=== PATIENT | female | born 1985 | race Caucasian/White ===

== ENCOUNTER → 2017-03-30 | Outpatient (CLI) | payer OTHER ==
[~2017-03-30] MED LIST: AC325T PO; ACET-2267 PO; ACHD5005 PO; DCS100C PO; DIPH50CA33 PO; DOCU-143 PO; EPIN0.3P2 IM; FOLI1TAB24 PO; FRS325T PO; IBP600T1 PO; IBUP-1773 PO; LORA10CA PO; MULT-974 PO; PRD50T PO; YASMIN PO
--- NOTE | 2017-03-30 17:22 | Diagnostic Imaging Report ---
PROCEDURE: US thyroid. TECHNIQUE: Multiple real-time grayscale images were obtained of the thyroid in various projections. INDICATION: Thyromegaly FINDINGS: The right lobe of the thyroid measures 4.2 x 1.4 x 1.5 cm. Left lobe measures 4.7 x 1.4 x 1.5 cm. There is a 3 mm colloid nodule in the right lobe of the thyroid that is largely degenerated. No other masses or nodules are seen in the thyroid. IMPRESSION: 3 mm colloid nodule in right lobe of the thyroid. Thyroid is otherwise unremarkable. Dictated by: Dictated on workstation # [id number]
== END ==
LOC: RAD 15:29
PROVIDERS: ATTEND Nurse Practitioner Family
DX: E04.1 Nontoxic single thyroid nodule (principal)
CPT/HCPCS: 76536

== ENCOUNTER → 2018-10-12 | Outpatient (CLI) | payer OTHER ==
--- NOTE | 2018-10-12 16:56 | Diagnostic Imaging Report ---
INDICATION: Lost IUD strings, vaginal bleeding. EXAMINATION: Pelvic sonography performed with transabdominal views. FINDINGS: The uterus measures 8.4 x 4.1 x 3.2 cm. Endometrium measures 3 mm in thickness. No IUD fragment or foreign body is detectable in the uterus. The right ovary is 3.5 x 3.4 x 2.0 cm. The left measures 3.4 x 2.5 x 2.3 cm. There is no free fluid. IMPRESSION: Normal-appearing pelvic sonography. No sonographically evident foreign body is seen. Dictated by: Dictated on workstation # [id number]
== END ==
LOC: RAD 15:03
PROVIDERS: ATTEND Obstetrics & Gynecology
DX: T83.32XA Displacement of intrauterine contraceptive device, initial encounter (principal); N92.1 Excessive and frequent menstruation with irregular cycle
CPT/HCPCS: 76856

== ENCOUNTER → 2018-10-19 | Outpatient (CLI) | payer OTHER | LOC: RAD 09:05 | PROVIDERS: ATTEND Obstetrics & Gynecology | DX: Z30.431 Encounter for routine checking of intrauterine contraceptive device (principal); Z53.8 Procedure and treatment not carried out for other reasons ==

== ENCOUNTER → 2018-10-23 | Outpatient (CLI) | payer OTHER ==
--- NOTE | 2018-10-23 18:47 | Diagnostic Imaging Report ---
INDICATION: Evaluate IUD. TIME OF EXAM 4:34 PM FINDINGS: Single view of the abdomen and pelvis does show an IUD in the midline/left para midline location of the pelvis. Bowel gas pattern is unremarkable. No pathologic calcifications are seen. IMPRESSION: IUD is located within the pelvis. CT study could be performed to evaluate for an extrauterine location. Dictated by: Dictated on workstation # [id number]
== END ==
LOC: RAD 16:26
PROVIDERS: ATTEND Obstetrics & Gynecology
DX: Z30.431 Encounter for routine checking of intrauterine contraceptive device (principal)
CPT/HCPCS: 74018

== ENCOUNTER 2018-11-01 15:09 | Outpatient (CLI) | payer OTHER ==
[~2018-11-01] VITALS: Ht 160 cm; Wt 62.1 kg
[2018-11-01] MEDS ORDERED: bcp PO (15:11)
[2018-11-02] MEDS ORDERED: ACET-2267 PO (14:50)
[2018-11-02] MEDS ORDERED: OXYC-529 PO (14:50)
[2018-11-02] MEDS ORDERED: IBUP-1773 PO (14:50)
== END 2018-11-01 15:27 | disposition home or self-care (01) ==
LOC: PREOP 15:09
PROVIDERS: ATTEND Nurse Practitioner
DX: Z01.818 Encounter for other preprocedural examination (principal)

== ENCOUNTER 2018-11-02 11:01 | Day surgery (SDC) | payer OTHER ==
[~2018-11-02] VITALS: Ht 160 cm; Wt 62.1 kg
[~2018-11-02 11:01] MED LIST changes: +bcp PO
--- OUTSIDE RECORDS SUMMARY | 2018-11-02 11:05 | XMS REPORT | Clinical Summary ---
Author Author [facility] Organization [facility] Address Unknown Phone Unavailable Care Team Providers Care Land Acquisition Manager Name Role Phone PCP Unavailable Allergies Not on File Current Medications Not on file Active Problems Not on file Social History Tobacco Use Types Packs/Day Years Used Date Never Assessed Sex Assigned at Date Recorded Not on file Last Filed Vital Signs Not on file Plan of Treatment Not on file Results Not on filefrom Last 3 Months
--- OUTSIDE RECORDS SUMMARY | 2018-11-02 11:05 | XMS REPORT | Clinical Summary ---
Author Author [facility] Organization [facility] Address Unknown Phone Unavailable Care Team Providers Care Patient Financial Rep Name Role Phone Self, Referral PCP Unavailable Source Comments Some departments are not documenting in the electronic medical record. If you do not see the information that you expected, contact Release of Information in the Health Information Management department at [phone] for further assistance in locating additional records.[facility] Allergies Not on File Medications Not on file Active Problems Not on file Social History Date Tobacco Use Types Packs/Day Years Used Never Assessed Sex Assigned at Date Recorded Not on file Industry Job Start Date Occupation Not on file Not on file Not on file Travel End Travel History Travel Start No recent travel history available. Last Filed Vital Signs Not on file Plan of Treatment Health Maintenance Due Date Last Done Comments PHYSICAL (COMPREHENSIVE) 1993 EXAM HIV SCREENING 2001 DTAP/TDAP VACCINES ( - 02/11/2004 Tdap) CERVICAL CANCER SCREENING 02/11/2016 INFLUENZA VACCINE 03/07/2018 Results Not on filefrom Last 3 Months
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
[2018-11-02 11:45] VITALS: BP 124/91
[2018-11-02] MEDS ORDERED: ROCURONIUM 10 MG/ML 5 ML SYRINGE IV ONE (11:57)
[2018-11-02] MEDS ORDERED: ONDANSETRON 4 MG/2 ML (SDV) Z0FRAN ONE (11:57)
[2018-11-02] MEDS ORDERED: fentaNYL INJECTION 100 MCG/2 ML AMP ONE (11:57)
[2018-11-02] MEDS ORDERED: MIDAZOLAM 2 MG/2 ML (VERSED) VIAL ONE (11:57)
[2018-11-02] MEDS ORDERED: GLYCOPYRROLATE 0.2 MG/ML (ROBINUL) 2 ML VIAL ONE (11:57)
[2018-11-02] MEDS ORDERED: NEOSTIGMINE 1 MG/ML 5 ML SYRINGE ONE (11:57)
[2018-11-02] MEDS ORDERED: DEXAMETHASONE 10 MG/ML (DECADRON) 1 ML VIAL ONE (11:57)
[2018-11-02] MEDS ORDERED: SEVOFLURANE (ULTANE) 15 ML INHAL SOLN ONE ×2 (11:57→14:59)
[2018-11-02] MEDS ORDERED: LIDOCAINE PF 2% 5 ML (XYLOCAINE) VIAL ONE (11:57)
[2018-11-02] MEDS ORDERED: proPOfol 200 MG/20 ML (DIPRIVAN) VIAL IV ONE (11:57)
[2018-11-02] MEDS ORDERED: BUP/EPI 0.5% 1:200,000 (SENSORCAINE) 30 ML VIAL ONE (11:58)
[2018-11-02] MEDS ORDERED: BUPIVACAINE 0.25% 30 ML (SENSORCAINE) VIAL ONE (11:59)
[2018-11-02] MEDS: LACTATED RINGERS 1,000 ML IV PRN ×2 (12:00→15:18)
--- NOTE | 2018-11-02 12:15 | History & Physical-Surgical ---
HPO-Surgical History of Present Illness Chief Complaint: Presents to remove IUD. It is misplaced in the abdomen Seen on Xray Diagnosis/Surgical Indication: misplaced IUD Procedure: laparoscopy with removal IUD Date of Surgery: Nov 02, 2018 Weight (Pounds): 137 Weight (Ounces): 0.0 Height (Feet): 5 Height (Inches): 3.00 Allergies and Home Medications Allergies Coded Allergies: Cefaclor (Verified Allergy, Intermediate, HIVES/SOA, 06/28/11) Home Medications [bcp] , 1 TAB PO DAILY, (Reported) Patient Home Medication List Home Medication List Reviewed: Yes Past Iladsgz-Mhbfxg-Pbsier Hx Patient Social History Marrital Status: Number of Children: 2 Number of living children: 2 Employed/Student: employed Alcohol Use: Rarely Uses Recreational Drug Use: No Smoking Status: Never a Smoker 2nd Hand Smoke Exposure: No Recent Foreign Travel: No Contact w/other who traveled: No Recent Hopitalizations: No Recent Infectious Disease Expo: No Immunizations Up To Date Tetanus Booster (TDap): Less than 5yrs Pediatric: Yes Date of Influenza Vaccine: May 01, 2018 Seasonal Allergies Seasonal Allergies: Yes Surgeries Yes (Zarephath Teeth 2001) Respiratory No Cardiovascular No Neurological No Reproductive System Hx Reproductive Disorders: Yes (pcos) Sexually Transmitted Disease: No HIV/AIDS: No Female Reproductive Disorders: Polycystic Ovarian Dis Genitourinary No Gastrointestinal No Musculoskeletal No Endocrine History of Endocrine Disorders: No HEENT History of HEENT Disorders: No Cancer No Psychosocial History of Psychiatric Problem: No Integumentary History of Skin or Integumenta: No Blood Transfusions History of Blood Disorders: No Adverse Reaction to a Blood Tr: No Family Medical History Family Hx: Basal cell carcinoma 19 FATHER Exam Vital Signs Vital Signs 11/02/18 11:45 Temp 98.9 Pulse 82 Resp 16 B/P (MAP) 124/91 (102) Pulse Ox 99 O2 Delivery Room Air Capillary Refill : Labs Laboratory Tests Test 11/02/18 11:20 11/02/18 12:05 Range/Units Urine Test NEGATIVE NEGATIVE General Appearance: No Acute Distress Respiratory: Clear to Auscultation, Normal Air Movement Cardiovascular: Regular Rate, Normal S1 Abdominal: Normal Bowel Sounds Assessment/Plan Assessment and Plan Misplaced IUD Plan laparoscopy with removal of IUD. Risks of surgery include bleeding, infection, injury to bowel, bladder and ureter. Prophylactic antibiotics and SCDs. KIP DODSON DO Nov 02, 2018 12:15
[2018-11-02 12:27] LABS: BASOPHILS % (AUTO) 1 % (0-10); EOSINOPHILS % (AUTO) 1 % (0-10); HEMATOCRIT 37 % (35-52); HEMOGLOBIN 12.3 G/DL (11.5-16.0); LYMPHOCYTES # (AUTO) 1.6 X 10^3 (1.0-4.0); LYMPHOCYTES % (AUTO) 40 % (12-44); MEAN CORPUSCULAR HEMOGLOBIN 30 PG (25-34); MEAN CORPUSCULAR HGB CONC 34 G/DL (32-36); MEAN CORPUSCULAR VOLUME 88 FL (80-99); MEAN PLATELET VOLUME 12.1 FL (7.4-10.4); MONOCYTES # (AUTO) 0.3 X 10^3 (0.0-1.0); MONOCYTES % (AUTO) 8 % (0-12); NEUTROPHILS % (AUTO) 51 % (42-75); PLATELET COUNT 153 10^3/uL (130-400); RED CELL DISTRIBUTION WIDTH 13.5 % (10.0-14.5); WHITE BLOOD COUNT 3.9 10^3/uL (4.3-11.0)
[2018-11-02] MEDS ORDERED: KETOROLAC 30 MG/ML VIAL ONE ×2 (12:42→14:29)
[2018-11-02] MEDS ORDERED: ceFAZolin 1,000 MG/SWFI 10 ML IV PUSH IV ONE ×2 (13:15)
[2018-11-02] MEDS ORDERED: ACETAMINOPHEN 500 MG TAB (TYLENOL) PO SCH (14:45)
[2018-11-02] MEDS ORDERED: ONDANSETRON 4 MG/2 ML (SDV) Z0FRAN IVP PRN ×2 (14:45→15:00)
[2018-11-02] MEDS ORDERED: D5 LR IV SOLUTION 1,000 ML IV SCH (14:45)
[2018-11-02] MEDS ORDERED: KETOROLAC 30 MG/ML VIAL IVP ONE (14:45)
--- NOTE | 2018-11-02 14:45 | Operative Report ---
Operative Report Date of Procedure/Surgery Nov 02, 2018 Surgeon (s) KIP DODSON DO Landscape Management Technician (s): Hetal RodriguezDaniel, MS IV Post-Operative Diagnosis Same Procedure Performed Laparoscopy with removal of IUD/foreign body in the omentum Description of Procedure Anesthesia Type: General Estimated blood loss (mL): none Specimen(s) collected/removed IUD, not sent for pathology Description of the Procedure With informed consent the patient was taken to the operating room where general anesthesia was found to be adequate. The bladder was drained of clear yellow urine and the speculum was placed in the vagina and the cervix was grasped with a tenaculum. The manipulator was placed in the cervix. Attention was turned to the abdomen and the umbilicus was injected with 0.5% Marcaine and a 5 mm skin incision was made. The Veress needle was inserted and intraabdominal placement was confirmed with a saline drop test and a drop in pressure. The abdomen was insufflated with warmed CO2 gas to a maximum pressure of 15 mmHg. A 5 mm trocar was now inserted with the Optiview. A survey of the abdomen showed the IUD to be next to the uterus in the peritoneum and omentum. It appeared to be embedded. There was no evidence of uterine extrusion. I then placed two additional trocars lateral to the rectus muscles and avoiding the inferior epigastric vessels. These were both 5 mm trocars. I then inserted the Harmonic scalpel and and additional grasper. However, I did not need to use the harmonic. The IUD was just wrapped in the omentum and was removed easily. It was removed through one of the trocars. At this point the instruments were removed from the abdomen. The skin incisions were closed with surgical glue and bandages were placed. The instruments were removed from the vagina. The patient was awakened and taken to recovery in a stable condition. Addendum - the patient was given Ancef even though the antibiotic order had been cancelled due to not needing antibiotics with laparoscopy. The RN misunderstood. The patient had some redness on her chest and was thus given Benadryl, however, it was determined to be contact erythema rather than an allergic reaction. In addition, it had previously been determined that she did not have a cephalosporin allergy. Findings of the Procedure Normal pelvis IUD imbedded in the omentum,. Allergies and Home Medications Allergies Coded Allergies: cefaclor (Verified Allergy, Intermediate, HIVES/SOA (TOLERATES ANCEF), ) Home Medications Acetaminophen 500 Mg Tablet, 1,000 MG PO TID Prescribed by: KIP DODSON on 11/02/18 1450 Ibuprofen 600 Mg Tablet, 600 MG PO Q6H Prescribed by: KIP DODSON on 11/02/18 1450 Oxycodone HCl 5 Mg Tablet, 5 MG PO q4hr Prescribed by: KIP DODSON on 11/02/18 1450 [bcp] , 1 TAB PO DAILY, (Reported) Patient Home Medication List Home Medication List Reviewed: Yes KIP DODSON DO Nov 02, 2018 14:45
[2018-11-02] MEDS ORDERED: ACET-2267 PO (14:50)
[2018-11-02] MEDS ORDERED: OXYC-529 PO (14:50)
[2018-11-02] MEDS ORDERED: IBUP-1773 PO (14:50)
--- NOTE | 2018-11-02 14:53 | Anesthesia-General Post-Op ---
General Patient Condition Mental Status/LOC: Same as Preop Cardiovascular: Satisfactory Nausea/Vomiting: Absent Respiratory: Satisfactory Pain: Controlled Complications: Absent Post Op Complications Complications None Follow Up Care/Instructions Patient Instructions None needed. Anesthesia/Patient Condition Patient Condition Patient is doing well, no complaints, stable vital signs, no apparent adverse anesthesia problems. No complications reported per nursing. LIZ BRYANT CRNA Nov 02, 2018 14:53
--- NOTE | 2018-11-02 14:53 | Discharge Inst-Women's Service ---
Discharge Inst-Women's Serv Depart Medication/Instructions New, Converted or Re-Newed RX: RX on Chart Final Diagnosis misplaced IUD Consults/Follow Up Additional Follow Up: Yes Activity Activity: Activity as Tolerated Driving Instructions: No Driving for 24 Hours NO SMOKING: NO SMOKING Diet Discharge Diet: No Restrictions Symptoms to Report to : Pain Increased, Fever Over 101 Degrees F, Vaginal Bleeding Increase, Cramps in Feet or Legs, Vaginal Discharge Foul For Any Problems or Questions: Contact Your Physician Skin/Wound Care Infection Signs and Symptoms: Increased Redness, Foul Odor of Wound, Increased Drainage, Skin Itchy or Has a Rash, Increased Swelling, Temperature Above 101 F Operative Area Clean and Dry: Keep Incision Clean/Dry Stitches/Mary/Dermabond: Dermabond Bathing Instructions: KIP Feng DO Nov 02, 2018 14:53
[2018-11-02] MEDS ORDERED: morphine INJ 10 MG/ML 1ML (SYR OR VIAL) IVP ONE (15:00)
[2018-11-02 15:35] VITALS: BP 115/63
[2018-11-02] MEDS ORDERED: ONDANSETRON 4 MG/2 ML (SDV) Z0FRAN IVP ONE (16:00)
[2018-11-02 16:05] VITALS: BP 112/60
[2018-11-02 16:35] VITALS: BP 118/63
[2018-11-02 17:30] VITALS: BP 118/63
[2018-11-02] MEDS ORDERED: IBUPROFEN 800 MG (MOTRIN) TAB PO SCH (18:00)
== END 2018-11-02 17:30 | disposition home or self-care (01) ==
LOC: SDC 11:01
PROVIDERS: ATTEND Obstetrics & Gynecology
DX: T83.32XA Displacement of intrauterine contraceptive device, initial encounter (principal); E28.2 Polycystic ovarian syndrome; L53.9 Erythematous condition, unspecified
CPT/HCPCS: 36415; 84703; 85025; 87081

== ENCOUNTER → 2021-05-05 | Outpatient (CLI) | payer OTHER ==
[~2021-05-05] MED LIST changes: +OXC5T PO
--- NOTE | 2021-05-05 17:23 | Diagnostic Imaging Report ---
INDICATION: Supervision of normal . Anatomy survey. TECHNIQUE: Multiple real-time grayscale images were obtained over the gravid uterus. COMPARISON: None CLINICAL DATES: Gestational age 20 weeks, 1 days, with an RIKKI of 09/21/2021 Number: Single live intrauterine Presentation: Transverse Placenta: Anterior Amniotic Fluid: SHELTON is within normal limits. The largest vertical pocket is 5.1 cm. Heart Rate: 163 bpm The cervix is closed and measures 5.1 cm in length. Cerebellum: visualized Lateral ventricles: visualized Cavum septum pellucidum: visualized Nasal Bone: Not well visualized Face: Not well visualized Stomach: visualized Kidneys: Not well visualized Bladder: visualized Three vessel cord: visualized Cord insertion: visualized 4 chamber heart: visualized outflow tracts: visualized Spine, upper: visualized Spine, lower: visualized Upper extremities: visualized Lower extremities: visualized Hands: Visualized, however not all fingers are well seen. Feet: Visualized, however not all toes are well seen. Biometrical measurements are as follows: Biparietal 4.64 cm, age 20 weeks 1 days. Head circumference 17.56 cm, age 20 weeks 1 days. Abdominal circumference 15.13 cm, age 20 weeks 3 days. Femur length 3.43 cm, age 20 weeks 6 days. Sonographic estimate age: 20 weeks 3 days. Sonographic estimated date of delivery: 09/19/2021. Estimated Weight: 357 gm (+/- 52 gm). LMP percentile: 65%. IMPRESSION: 1. Single live intrauterine at approximately 20 weeks, 3 days, with an RIKIK of 09/19/2021. These are within range clinical dates. 2. The nasal bone, face, and kidneys are not well visualized due to position. The remainder of the anatomic structures are seen and have a normal appearance. Recommend followup as indicated. Dictated by: Dictated on workstation # [id number]
== END ==
LOC: RAD 15:09
PROVIDERS: ATTEND Nurse Practitioner Women's Health
DX: Z34.02 Encounter for supervision of normal first pregnancy, second trimester (principal); Z3A.20 20 weeks gestation of pregnancy
CPT/HCPCS: 76805

== ENCOUNTER → 2021-06-29 | Outpatient (CLI) | payer OTHER ==
--- NOTE | 2021-06-29 15:45 | Diagnostic Imaging Report ---
INDICATION: Follow-up face and kidneys. TECHNIQUE: Multiple real-time grayscale images were obtained over the gravid uterus. COMPARISON: 05/05/2021. FINDINGS: A single live fetus with a heart rate of 163 bpm. nose, lips and kidneys were visualized on today's study and appear within normal limits. IMPRESSION: Unremarkable limited obstetrical ultrasound. Dictated by: Dictated on workstation # [id number]
== END ==
LOC: RAD 13:30
PROVIDERS: ATTEND Obstetrics & Gynecology
DX: Z34.82 Encounter for supervision of other normal pregnancy, second trimester (principal); Z3A.00 Weeks of gestation of pregnancy not specified
CPT/HCPCS: 76816

== ENCOUNTER 2021-09-14 06:00 | Inpatient (IN) | payer OTHER ==
[2021-09-14] VITALS (52 sets, daily range): BP systolic 103–139; BP diastolic 56–89
[~2021-09-14] VITALS: Ht 160 cm; Wt 81.6 kg
--- NOTE | 2021-09-14 07:47 | History & Physical-OB ---
OB - Chief Complaint & HPI Date/Time Date of Admission: Date of Admission: Sep 14, 2021 at 07:22 Allergies and Home Medications Allergies Coded Allergies: cefaclor (Verified Allergy, Intermediate, HIVES/SOA (TOLERATES ANCEF), 11/02/18) Patient Home Medication List Acetaminophen (Tylenol Extra Strength) 500 Mg Tablet, 1,000 MG PO TID Prescribed by: KIP DODSON on 11/02/18 1450 Ibuprofen (Ibuprofen) 600 Mg Tablet, 600 MG PO Q6H Prescribed by: KIP DODSON on 11/02/18 1450 Oxycodone Hcl (Oxyir Tablet) 5 Mg Tablet, 5 MG PO q4hr Prescribed by: KIP DODSON on 11/02/18 1450 [bcp] , 1 TAB PO DAILY, (Reported) Entered as Reported by: MADI ACEVES on 11/01/18 1511 OB - History Obstetrical History Hx Termination: No Hx Multiple Gestation: No Hx Stillbirth: No Hx Complication: Yes (mild HPTN with first ) Hx Induced Hypertens: Yes (with 1st ) Hx Maternal Gestational Diabet: No Delivery History Hx Dystocia: No Hx Large For Gestational Age I: No Hx Small for Gestational Age I: No Hx Section: No Hx Vaginal Delivery Post C-Sec: No Hx Blood Disorders: No Adverse Rxn to Tranfusion: No Social History/Family History 2nd Hand Smoke Exposure: No Immunizations Hepatitis A: No Hepatitis B: Yes Tetanus Booster (TDap): Less than 5yrs KIP DODSON DO Sep 14, 2021 07:47
[2021-09-14] MEDS ORDERED: MINERAL OIL 30 ML OIL TOP PRN (08:30)
[2021-09-14] MEDS ORDERED: LIDOCAINE/EPI 2% 1:200,00 (XYLOCAINE) 20 ML VIAL INJ PRN (08:30)
[2021-09-14 08:35] LABS: BILIRUBIN,URINE NEGATIVE (NEGATIVE); CLARITY,URINE SL CLOUDY; COLOR,URINE YELLOW; GLUCOSE, URINE (UA) NEGATIVE (NEGATIVE); KETONES,URINE NEGATIVE (NEGATIVE); LEUKOCYTE ESTERASE ,URINE TRACE (NEGATIVE); NITRITE,URINE NEGATIVE (NEGATIVE); PROTEIN,URINE NEGATIVE (NEGATIVE)
[2021-09-14] MEDS: D5 LR IV SOLUTION 1,000 ML IV SCH ×2 (08:35→16:41)
[2021-09-14] MEDS: OXYTOCIN PRE-MIX DRIP 500 ML IV SCH ×2 (08:36→17:45)
[2021-09-14] MEDS ORDERED: fentaNYL 2 mcg/ml BUPIVA 0.125 100 ML ONE (08:41)
[2021-09-14 08:43] LABS: BASOPHILS % (AUTO) 1 % (0-10); HEMOGLOBIN 10.7 g/dL (11.5-16.0)
[2021-09-14 08:43] LABS: BACTERIA,URINE TRACE /HPF
[2021-09-14 08:45] LABS: EOSINOPHILS # (AUTO) 0.1 10^3/uL (0.0-0.3); EOSINOPHILS % (AUTO) 1 % (0-10); HEMATOCRIT 33 % (35-52); LYMPHOCYTES # (AUTO) 1.5 10^3/uL (1.0-4.0); LYMPHOCYTES % (AUTO) 22 % (12-44); MEAN CORPUSCULAR HEMOGLOBIN 29 pg (25-34); MEAN CORPUSCULAR HGB CONC 32 g/dL (32-36); MEAN CORPUSCULAR VOLUME 89 fL (80-99); MONOCYTES # (AUTO) 0.5 10^3/uL (0.0-1.0); MONOCYTES % (AUTO) 8 % (0-12); NEUTROPHILS # (AUTO) 4.6 10^3/uL (1.8-7.8); NEUTROPHILS % (AUTO) 69 % (42-75); PLATELET COUNT 189 10^3/uL (130-400); WHITE BLOOD COUNT 6.8 10^3/uL (4.3-11.0)
[2021-09-14] MEDS: EPIDURAL (fentaNYL 2 MCG/ML BUPIVA 0.125%)100 ML BAG EPI SCH ×2 (09:53→16:41)
[2021-09-14] MEDS ORDERED: ONDANSETRON 4 MG/2 ML (SDV) Z0FRAN IV PRN (10:00)
[2021-09-14] MEDS ORDERED: METOCLOPRAMIDE INJ 10 MG/2 ML (REGLAN) IV PRN (10:00)
[2021-09-14] MEDS ORDERED: NALOXONE 0.4 MG/ML 1 ML (NARCAN) VIAL IV PRN ×3 (10:00→17:30)
[2021-09-14] MEDS ORDERED: diphenhydrAMINE 50 MG/ML INJ (BENADRYL) IV PRN (10:00)
[2021-09-14] MEDS ORDERED: LACTATED RINGERS 1,000 ML IV SCH (10:00)
[2021-09-14] MEDS ORDERED: CATHETER FLUSH 10 ML SYR IV SCH ×2 (14:00→22:00)
[2021-09-14] MEDS ORDERED: OXYTOCIN PRE-MIX DRIP 500 ML IV SCH (17:30)
[2021-09-14] MEDS ORDERED: DIBUCAINE 1% OINTMENT 30 GM TUBE TOP PRN (17:30)
[2021-09-14] MEDS ORDERED: BENZOCAINE/MENTHOL (DERMOPLAST) 56 ML CAN TP PRN (17:30)
[2021-09-14] MEDS ORDERED: MEASLES,MUMPS,RUBELLA 1 EA INJ SQ ONE (17:30)
[2021-09-14] MEDS ORDERED: WITCH HAZEL(TUCKS) 40 EA JAR TOP PRN (17:30)
[2021-09-14] MEDS ORDERED: TETANUS,DIPTH,PERTUSS P/F (BOOSTRIX) 0.5 ML VIAL IM ONE (17:30)
--- NOTE | 2021-09-14 17:33 | OB Labor & Delivery Record ---
Vag Delivery Note Vag Delivery Note Date of Delivery: 09/14/21 Preoperative Diagnosis: Katherin Estevez is a 36 /Para 4/3 ,Gestational Age 39 weeks, Advanced Maternal age, for induction of labor Postoperative Diagnosis: Same Surgeon: KIP DODSON Anesthesia: epidural Delivery Type: vaginal Findings: Viable female , apgars 9/9, weight 7#8ounces Lacerations: 1st degree Intact placenta with 3 vessel cord. No nuchal cord, body cord or shoulder dystocia Estimated Blood Loss: 150 ml Complications: None Condition: Stable Description of Procedure: The patient is a 36 year old female who presented for induction of labor. She was admitted and informed consent was obtained. Her labor course was remarkable for AROM at 4 cm, with pitocin augmentation. She progressed to complete dilatation and began to push. She was then set up for delivery. The infant's head was delivered atraumatically in the BLAKE position. The shoulders and remainder of the infant's body were then delivered without difficulty. Upon delivery, the head was held below the level of the perineum and the mouth and nares were bulb suctioned. The cord was doubly clamped and cut and the was handed off to the pediatric staff. An intact placenta with 3-vessel cord delivered via Rachana and there was found to be minimal bleeding.~ Vigorous fundal massage was performed and the fundus was found to be firm. IV oxytocin was given. Examination of the vagina and perineum revealed a 1st degree laceration repaired in the usual fashion with 3-0 vicryl suture. Following the repair, sponge, instrument and needle counts were correct. Mom and baby were both in stable condition in the labor suite. Vitals - Labs Vital Signs - I&O Vital Signs Date Time Temp Pulse Resp B/P (MAP) Pulse Ox O2 Delivery O2 Flow Rate FiO2 09/14/21 13:00 Room Air 09/14/21 12:45 36.6 81 18 123/75 (91) Room Air 09/14/21 12:30 76 18 112/71 (85) Room Air 09/14/21 12:15 82 18 108/67 (81) Room Air 09/14/21 12:00 78 18 108/69 (82) Room Air 09/14/21 11:45 79 18 110/69 (83) Room Air 09/14/21 11:30 90 18 108/69 (82) Room Air 09/14/21 11:15 78 18 110/71 (84) 100 Room Air 09/14/21 11:00 95 18 109/69 (82) 100 Room Air 09/14/21 10:45 36.9 77 18 112/67 (82) 98 Room Air 09/14/21 10:35 78 18 111/59 (76) 100 Room Air 09/14/21 10:30 80 18 118/62 (80) 99 Room Air 09/14/21 10:15 85 18 112/67 (82) 100 Room Air 09/14/21 10:08 86 18 109/61 (77) 100 Room Air 09/14/21 10:05 78 18 114/65 (81) 100 Room Air 09/14/21 10:02 92 18 109/68 (82) 100 Room Air 09/14/21 10:00 93 18 106/68 (81) 100 Room Air 09/14/21 09:56 93 18 116/71 (86) 100 Room Air 09/14/21 09:53 86 18 114/68 (83) 100 Room Air 09/14/21 09:50 89 18 108/69 (82) 100 Room Air 09/14/21 09:45 93 18 128/75 (92) 100 Room Air 09/14/21 09:40 100 18 126/78 (94) 100 Room Air 09/14/21 09:30 85 18 117/67 (84) Room Air 09/14/21 09:15 88 18 119/64 (82) Room Air 09/14/21 09:00 84 18 112/58 (76) Room Air 09/14/21 08:40 76 18 103/61 (75) Room Air 09/14/21 08:25 75 18 105/61 (76) Room Air 09/14/21 07:50 37.2 110 16 98 Room Air Labs Laboratory Tests 09/14/21 07:30: Urine Color YELLOW, Urine Clarity SL CLOUDY, Urine pH 6.0, Urine Specific Mobile >=1.030, Urine Protein NEGATIVE, Urine Glucose (UA) NEGATIVE, Urine Ketones NEGATIVE, Urine Nitrite NEGATIVE, Urine Bilirubin NEGATIVE, Urine Urobilinogen 0.2, Urine Leukocyte Esterase TRACEH, Urine RBC (Auto) NEGATIVE, Urine RBC NONE, Urine WBC 10-25H, Urine Squamous Epithelial Cells 10-25H, Urine Crystals NONE, Urine Bacteria TRACE, Urine Casts NONE, Urine Mucus NEGATIVE, Urine Culture Indicated YES 09/14/21 08:00: White Blood Count 6.8, Red Blood Count 3.74L, Hemoglobin 10.7L, Hematocrit 33L, Mean Corpuscular Volume 89, Mean Corpuscular Hemoglobin 29, Mean Corpuscular Hemoglobin Concent 32, Red Cell Distribution Width 13.4, Platelet Count 189, Mean Platelet Volume 13.0H, Immature Granulocyte % (Auto) 1, Neutrophils (%) (Auto) 69, Lymphocytes (%) (Auto) 22, Monocytes (%) (Auto) 8, Eosinophils (%) (Auto) 1, Basophils (%) (Auto) 1, Neutrophils # (Auto) 4.6, Lymphocytes # (Auto) 1.5, Monocytes # (Auto) 0.5, Eosinophils # (Auto) 0.1, Basophils # (Auto) 0.0, Immature Granulocyte # (Auto) 0.0, Percent Immature Platelet Fraction 11.7H KIP DODSON DO Sep 14, 2021 17:33
[2021-09-14] MEDS: IBUPROFEN 600 MG (MOTRIN) TAB PO SCH (21:32)
[2021-09-14] MEDS: DOCUSATE SODIUM 100 MG (COLACE) CAP PO SCH (21:32)
[2021-09-14] MEDS: ACETAMINOPHEN 500 MG TAB (TYLENOL) PO SCH (21:32)
[2021-09-15 03:31] VITALS: BP 123/71
[2021-09-15] MEDS: IBUPROFEN 600 MG (MOTRIN) TAB PO SCH ×3 (03:31→16:33)
[2021-09-15 06:03] LABS: BASOPHILS % (AUTO) 1 % (0-10); EOSINOPHILS # (AUTO) 0.1 10^3/uL (0.0-0.3); EOSINOPHILS % (AUTO) 1 % (0-10); HEMATOCRIT 31 % (35-52); HEMOGLOBIN 9.8 g/dL (11.5-16.0); LYMPHOCYTES # (AUTO) 1.6 10^3/uL (1.0-4.0); LYMPHOCYTES % (AUTO) 18 % (12-44); MEAN CORPUSCULAR HEMOGLOBIN 29 pg (25-34); MEAN CORPUSCULAR HGB CONC 32 g/dL (32-36); MEAN CORPUSCULAR VOLUME 90 fL (80-99); MEAN PLATELET VOLUME 12.4 fL (9.0-12.2); MONOCYTES # (AUTO) 0.6 10^3/uL (0.0-1.0); MONOCYTES % (AUTO) 7 % (0-12); NEUTROPHILS # (AUTO) 6.4 10^3/uL (1.8-7.8); NEUTROPHILS % (AUTO) 73 % (42-75); PLATELET COUNT 160 10^3/uL (130-400); WHITE BLOOD COUNT 8.8 10^3/uL (4.3-11.0)
[2021-09-15] MEDS: ACETAMINOPHEN 500 MG TAB (TYLENOL) PO SCH ×2 (06:35→14:23)
[2021-09-15] MEDS ORDERED: PRENATAL VITAMIN 1 EA TAB PO SCH (07:00)
--- NOTE | 2021-09-15 07:54 | Postpartum Progress Note ---
Note Note Day # 1 s/p Subjective: Patient is without complaints. Ambulating, voiding. Tolerating a regular diet w ithout nausea or vomiting. Normal lochia. Pain is well controlled with oral pain medications. breast feeding. Objective: 09/14/21 09/14/21 09/14/21 09/14/21 20:02 20:17 21:20 23:35 Temp 37.4 37.2 36.8 Pulse 96 95 88 69 Resp 18 18 18 18 B/P (MAP) 112/59 (76) 110/57 (74) 122/71 (88) 121/69 (86) Pulse Ox 97 O2 Delivery Room Air Room Air Room Air Room Air 09/15/21 03:31 Temp 36.2 Pulse 65 Resp 18 B/P (MAP) 123/71 (88) Pulse Ox 98 O2 Delivery Room Air 09/14/21 23:59 Intake Total 1625 ml Balance 1625 ml Laboratory Tests Test 09/14/21 08:00 09/15/21 05:57 Range/Units White Blood Count 6.8 8.8 4.3-11.0 10^3/uL Red Blood Count 3.74 L 3.39 L 3.80-5.11 10^6/uL Hemoglobin 10.7 L 9.8 L 11.5-16.0 g/dL Hematocrit 33 L 31 L 35-52 % Mean Corpuscular Volume 89 90 80-99 fL Mean Corpuscular Hemoglobin 29 29 25-34 pg Mean Corpuscular Hemoglobin Concent 32 32 32-36 g/dL Red Cell Distribution Width 13.4 13.7 10.0-14.5 % Platelet Count 189 160 130-400 10^3/uL Mean Platelet Volume 13.0 H 12.4 H 9.0-12.2 fL Immature Granulocyte % (Auto) 1 1 % Neutrophils (%) (Auto) 69 73 42-75 % Lymphocytes (%) (Auto) 22 18 12-44 % Monocytes (%) (Auto) 8 7 0-12 % Eosinophils (%) (Auto) 1 1 0-10 % Basophils (%) (Auto) 1 1 0-10 % Neutrophils # (Auto) 4.6 6.4 1.8-7.8 10^3/uL Lymphocytes # (Auto) 1.5 1.6 1.0-4.0 10^3/uL Monocytes # (Auto) 0.5 0.6 0.0-1.0 10^3/uL Eosinophils # (Auto) 0.1 0.1 0.0-0.3 10^3/uL Basophils # (Auto) 0.0 0.0 0.0-0.1 10^3/uL Immature Granulocyte # (Auto) 0.0 0.1 0.0-0.1 10^3/uL Percent Immature Platelet Fraction 11.7 H 0.0-7.6 % Physical Exam: General - Alert and oriented, no apparent distress Abdomen - Soft, appropriately tender to palpation, non-distended, fundus firm at umbilicus Extremities - no edema, negative Joaquin's bilaterally Assessment: 1. post- day # 1, status post spontaneous vaginal delivery. Recovering well, hemodynamically stable Plan: Routine care. Encourage breast feeding. Encourage ambulation. Ferrous sulfate supplementation. Plan for discharge [later today or tomorrow Vitals - Labs Vital Signs - I&O Vital Signs Date Time Temp Pulse Resp B/P (MAP) Pulse Ox O2 Delivery O2 Flow Rate FiO2 09/15/21 03:31 36.2 65 18 123/71 (88) 98 Room Air 09/14/21 23:35 36.8 69 18 121/69 (86) 97 Room Air 09/14/21 21:20 37.2 88 18 122/71 (88) Room Air 09/14/21 20:17 37.4 95 18 110/57 (74) Room Air 09/14/21 20:02 96 18 112/59 (76) Room Air 09/14/21 19:32 99 18 107/56 (73) Room Air 09/14/21 19:18 37.6 92 18 111/59 (76) Room Air 09/14/21 18:17 37.4 94 18 124/60 (81) Room Air 09/14/21 17:35 37.9 88 18 123/64 (83) Room Air 09/14/21 17:20 37.6 106 18 134/73 (93) Room Air 09/14/21 17:05 37.5 96 18 132/89 (103) Room Air 09/14/21 16:50 88 18 126/56 (79) Room Air 09/14/21 16:35 81 18 121/71 (88) Room Air 09/14/21 16:20 77 18 130/73 (92) Room Air 09/14/21 16:05 37.2 82 18 139/78 (98) Room Air 09/14/21 15:50 87 18 122/88 (99) Room Air 09/14/21 15:35 81 18 122/70 (87) Room Air 09/14/21 15:20 86 18 110/79 (89) Room Air 09/14/21 15:05 75 18 123/79 (94) Room Air 09/14/21 14:50 83 18 120/78 (92) Room Air 09/14/21 14:35 84 18 110/81 (91) Room Air 09/14/21 14:20 80 18 120/76 (91) Room Air 09/14/21 14:05 85 18 125/77 (93) Room Air 09/14/21 13:50 77 18 125/68 (87) Room Air 09/14/21 13:35 90 18 122/79 (93) Room Air 09/14/21 13:20 79 18 121/74 (90) Room Air 09/14/21 13:00 Room Air 09/14/21 12:45 36.6 81 18 123/75 (91) Room Air 09/14/21 12:30 76 18 112/71 (85) Room Air 09/14/21 12:15 82 18 108/67 (81) Room Air 09/14/21 12:00 78 18 108/69 (82) Room Air 09/14/21 11:45 79 18 110/69 (83) Room Air 09/14/21 11:30 90 18 108/69 (82) Room Air 09/14/21 11:15 78 18 110/71 (84) 100 Room Air 09/14/21 11:00 95 18 109/69 (82) 100 Room Air 09/14/21 10:45 36.9 77 18 112/67 (82) 98 Room Air 09/14/21 10:35 78 18 111/59 (76) 100 Room Air 09/14/21 10:30 80 18 118/62 (80) 99 Room Air 09/14/21 10:15 85 18 112/67 (82) 100 Room Air 09/14/21 10:08 86 18 109/61 (77) 100 Room Air 09/14/21 10:05 78 18 114/65 (81) 100 Room Air 09/14/21 10:02 92 18 109/68 (82) 100 Room Air 09/14/21 10:00 93 18 106/68 (81) 100 Room Air 09/14/21 09:56 93 18 116/71 (86) 100 Room Air 09/14/21 09:53 86 18 114/68 (83) 100 Room Air 09/14/21 09:50 89 18 108/69 (82) 100 Room Air 09/14/21 09:45 93 18 128/75 (92) 100 Room Air 09/14/21 09:40 100 18 126/78 (94) 100 Room Air 09/14/21 09:30 85 18 117/67 (84) Room Air 09/14/21 09:15 88 18 119/64 (82) Room Air 09/14/21 09:00 84 18 112/58 (76) Room Air 09/14/21 08:40 76 18 103/61 (75) Room Air 09/14/21 08:25 75 18 105/61 (76) Room Air I & O 09/15/21 06:59 Intake Total 1625 ml Balance 1625 ml Labs Laboratory Tests 09/14/21 08:00: White Blood Count 6.8, Red Blood Count 3.74L, Hemoglobin 10.7L, Hematocrit 33L, Mean Corpuscular Volume 89, Mean Corpuscular Hemoglobin 29, Mean Corpuscular Hemoglobin Concent 32, Red Cell Distribution Width 13.4, Platelet Count 189, Mean Platelet Volume 13.0H, Immature Granulocyte % (Auto) 1, Neutrophils (%) (Auto) 69, Lymphocytes (%) (Auto) 22, Monocytes (%) (Auto) 8, Eosinophils (%) (Auto) 1, Basophils (%) (Auto) 1, Neutrophils # (Auto) 4.6, Lymphocytes # (Auto) 1.5, Monocytes # (Auto) 0.5, Eosinophils # (Auto) 0.1, Basophils # (Auto) 0.0, Immature Granulocyte # (Auto) 0.0, Percent Immature Platelet Fraction 11.7H 09/15/21 05:57: White Blood Count 8.8, Red Blood Count 3.39L, Hemoglobin 9.8L, Hematocrit 31L, Mean Corpuscular Volume 90, Mean Corpuscular Hemoglobin 29, Mean Corpuscular Hemoglobin Concent 32, Red Cell Distribution Width 13.7, Platelet Count 160, Mean Platelet Volume 12.4H, Immature Granulocyte % (Auto) 1, Neutrophils (%) (Auto) 73, Lymphocytes (%) (Auto) 18, Monocytes (%) (Auto) 7, Eosinophils (%) (Auto) 1, Basophils (%) (Auto) 1, Neutrophils # (Auto) 6.4, Lymphocytes # (Auto) 1.6, Monocytes # (Auto) 0.6, Eosinophils # (Auto) 0.1, Basophils # (Auto) 0.0, Immature Granulocyte # (Auto) 0.1 KIP DODSON DO Sep 15, 2021 07:54
[2021-09-15] MEDS ORDERED: FERROUS SULF 325 MG (IRON) TAB PO SCH (09:00)
[2021-09-15] MEDS: DOCUSATE SODIUM 100 MG (COLACE) CAP PO SCH (09:20)
[2021-09-15 10:24] VITALS: BP 124/68
--- NOTE | 2021-09-15 14:16 | Anesthesia-Regional Post-Op ---
Regional Patient Condition Mental Status: Alert, Oriented x3 Circulation: Same as Pre-Op Headache: Absent Sensation: Full Recovery Motor Block: Absent Post Op Complications Complications None Follow Up Care/Instructions Patient Instructions None needed. Anesthesia/Patient Condition Patient is doing well, no complaints, stable vital signs, no apparent adverse anesthesia problems. No complications reported per nursing. PERLITA PHELPS CRNA Sep 15, 2021 14:16
[2021-09-15 14:25] VITALS: BP 116/75
[2021-09-15] MEDS ORDERED: ACET-2267 PO (19:13)
[2021-09-15] MEDS ORDERED: IBUP-1773 PO (19:13)
--- NOTE | 2021-09-15 19:14 | Discharge Inst-Women's Service ---
Discharge Inst-Women's Serv Depart Medication/Instructions New, Converted or Re-Newed RX: Transmitted to Pharmacy Final Diagnosis 39 week gestation vaginal delivery acute blood loss anemia Problems Reviewed?: Yes Consults/Follow Up Additional Follow Up: Yes (4-6 week post (schedule with Elder)) Activity Activity: Activity as Tolerated Driving Instructions: You May Drive NO SMOKING: NO SMOKING Nothing Inside Vagina: No Douching, No [place], No Tampons Diet Discharge Diet: No Restrictions Symptoms to Report to DrJames: Bleeding Excessive, Pain Increased, Fever Over 101 Degrees F, Vaginal Bleeding Increase, Cramps in Feet or Legs, Vaginal Discharge FoKIP Ruiz DO Sep 15, 2021 19:14
[2021-09-15 19:40] VITALS: BP 131/72
== END 2021-09-15 19:40 | disposition home or self-care (01) | DRG 806 ==
LOC: LDRP 07:22
PROVIDERS: ADMIT Obstetrics & Gynecology; ATTEND Obstetrics & Gynecology
PROC: 10E0XZZ Delivery of Products of Conception, External Approach (ICD-10-PCS; principal; 2021-09-14)
PROC: 3E033VJ Introduction of Other Hormone into Peripheral Vein, Percutaneous Approach (ICD-10-PCS; 2021-09-14)
PROC: 0HQ9XZZ Repair Perineum Skin, External Approach (ICD-10-PCS; 2021-09-14)
DX: O70.0 First degree perineal laceration during delivery (principal); D62 Acute posthemorrhagic anemia; Z37.0 Single live birth; Z3A.39 39 weeks gestation of pregnancy; O90.81 Anemia of the puerperium
CPT/HCPCS: 36415; 81000; 85025; 86850; 86900; 86901; 87088